=== PATIENT | male | born 1965 | race Two or more races ===

== ENCOUNTER 2017-03-28 03:27 | Emergency (ER) | payer BC ==
[~2017-03-28] VITALS: Ht 182.9 cm; Wt 104.3 kg
[2017-03-28] MEDS ORDERED: CLOTRIMAZOLE-BETAMETHASONE CRM (03:38)
[2017-03-28] MEDS ORDERED: HYDROCODON-ACETAMINOPHN 10-325 (03:38)
[2017-03-28] MEDS ORDERED: COLCRYS 0.6 MG TABLET (03:38)
--- NOTE | 2017-03-28 04:12 | NUR ---
Patient discharged to home in stable conditon. Written and verbal after care instructions given. Patient verbalizes understanding of instructions.
== END 2017-03-28 04:13 | disposition home or self-care (01) ==
LOC: ER 03:33
DX: Z00.8 Encounter for other general examination (principal); F17.200 Nicotine dependence, unspecified, uncomplicated
CPT/HCPCS: 74000; 99283; 99406; A4663

== ENCOUNTER 2022-09-21 14:24 | Inpatient (IN) | payer OTHER ==
[~2022-09-21] VITALS: Ht 182.9 cm; Wt 113.4 kg
[~2022-09-21 14:24] MED LIST: CLOTRIMAZOLE-BETAMETHASONE CRM; COLCRYS 0.6 MG TABLET; HYDROCODON-ACETAMINOPHN 10-325
[2022-09-21 21:15] VITALS: BP 118/80
--- NOTE | 2022-09-21 21:15 | NUR ---
patient received via gurgio from [facility] for ARU -REHAB ADMISSION DX:RIGHT KNEE REPLACEMENT - TOTAL KNEE ARTHROPLASTY -C/O OSTEOARTHRITIS. PATIENT AAOX4.NO RESPIRATORY DISTRESS NOTED ON ROOM AIR . RIGHT KNEE WITH POST OP DRESSING -WRAPPED WITH KAYLIE BANDAGE. URINAL PLACED WITHIN REACH.ORIENTED WITH ROOM AND EQUIPMENT . CALL LIGHT PLACED WITH IN REACH AND ADVISED PATIENT TO CALL FOR ASSISTANCE AND HELP .
--- NOTE | 2022-09-21 22:30 | NUR ---
CALLED [facility] AND BRADY MARLEY INFORMED PATIENT IS HERE AND NEED ADMISSION ORDERS MEDICATION NEEDS TO BE RECONCILED .
[2022-09-21] MEDS ORDERED: DICL25TA10 PO (22:42)
[2022-09-21] MEDS ORDERED: VALS80TA2 PO (22:42)
[2022-09-21] MEDS ORDERED: ASPI81TA31 PO (22:42)
[2022-09-21] MEDS ORDERED: PANT40TA49 PO (22:42)
[2022-09-21] MEDS ORDERED: OXYC10TA49 PO (22:42)
[2022-09-22] MEDS ORDERED: HYDROCODONE/APAP 5-325MG TABLET PO PRN (00:30)
[2022-09-22] MEDS ORDERED: ACETAMINOPHEN 325 MG TABLET PO PRN (00:30)
[2022-09-22] MEDS ORDERED: MAGNESIUM HYDROXIDE 30 ML LIQUID UDC PO PRN (00:30)
[2022-09-22] MEDS ORDERED: ONDANSETRON 4 MG/2 ML VIAL IV PRN (00:30)
[2022-09-22] MEDS ORDERED: REMEDY ESSENTIAL ZINC PASTE 113 GM TP PRN (00:30)
[2022-09-22] MEDS ORDERED: HYDROCODONE/APAP 10-325 MG TABLET PO PRN ×2 (01:30→07:00)
[2022-09-22] MEDS ORDERED: DICLOFENAC 25 MG TABLET.DR PO PRN ×2 (01:30→09:15)
[2022-09-22 04:00] VITALS: BP 135/82
[2022-09-22] MEDS: OXYCODONE HCL 5 MG TABLET PO PRN ×2 (04:24→08:21)
--- NOTE | 2022-09-22 04:28 | NUR ---
patient called verbalizing pain to his right knee 10/10, patient requesting the oxycodone . given pain medication took pill with applejuice patient also requested for something to eat given ham sandwich .
[2022-09-22] MEDS: PANTOPRAZOLE SODIUM 40 MG TABLET.DR PO SCH (06:27)
[2022-09-22] MEDS ORDERED: PANTOPRAZOLE SODIUM 40 MG TABLET.DR PO SCH (07:00)
[2022-09-22 07:47] VITALS: BP 126/84
[2022-09-22] MEDS: ASPIRIN 81 MG TAB.CHEW PO SCH ×2 (08:20→20:33)
[2022-09-22] MEDS: VALSARTAN 80 MG TABLET PO SCH (08:20)
--- NOTE | 2022-09-22 09:28 | NUR ---
PATIENT VERBALIZED HAVING INTENSE PAIN 10/10 ON KNEE. RN NOTIFIES MD. MD ACKNOWLEDGED. RN PROVIDED ICE FOR COMFORT. PLAN OF CARE CONTINUES.
[2022-09-22] MEDS ORDERED: KETOROLAC TROMETHAMINE 30 MG INJ IM ONE (10:00)
[2022-09-22] MEDS: MORPHINE SULFATE SR 15 MG TABLET.SA PO SCH ×2 (10:07→20:33)
--- NOTE | 2022-09-22 10:15 | NUR ---
ORDERS RECEIVED FROM MD RELATED TO PAIN MEDICATIONS. ORDERS CARRIED OUT. NO ACUTE DISTRESS NOTED. PLAN OF CARE CONTINUES.
[2022-09-22] MEDS: ENOXAPARIN SODIUM 40 MG/0.4 ML DISP.SYRIN SQ SCH (11:41)
[2022-09-22 16:16] VITALS: BP 109/77
--- NOTE | 2022-09-22 19:49 | NUR ---
RN RECEIVED REPORT FROM GENE MURPHY, NOC SHIFT. PATIENT IS ALERT AND ORIENTED X4 AND VITAL SIGNS STABLE. PATIENT COMPLAINED OF PAIN. RN GAVE PAIN MEDICATIONS ORDERED. PATIENT EXPRESSED RELIEF. PATIENT TOLERATES PO MEDICATIONS AND DIET WELL. PATIENT PARTICIPATES WITH PHYSICAL AND OCCUPATIONAL THERAPY SCHEDULED, HOWEVER PAIN WORSEN. RN NOTIFIED MD. ORDERS CARRIED OUT. PATIENT'S BROTHER VISITED. NO ACUTE DISTRESS NOTED. ALL NEEDS MET AT THIS TIME. CALL LIGHT WITHIN REACH. RN ENDORSED CONTINUATION OF CARE TO GENE MURPHY, FOR THE CONTINUATION OF CARE.
--- NOTE | 2022-09-22 20:00 | NUR ---
rounds made patient in bed resting .no s/s of respiratory distress .denies pain at this time . right knee with елена wrapped CDI .ICE PACKS placed on top of the knee .
[2022-09-22 20:19] VITALS: BP 116/73
[2022-09-22] MEDS: DOCUSATE SODIUM 100 MG CAPSULE PO SCH (20:33)
--- NOTE | 2022-09-22 20:33 | NUR ---
due po medication given and patient tolerated with water . hob up and aspiration precaution observed patient able to swallow meds with no difficulty .
[2022-09-23] MEDS: OXYCODONE HCL 5 MG TABLET PO PRN ×2 (02:15→14:55)
--- NOTE | 2022-09-23 02:15 | NUR ---
patient called c/o pain to his right knee 03/05.given prn oxycodone 10 mg tablet took medication with cranberry juice . .
[2022-09-23 04:00] VITALS: BP 125/74
--- NOTE | 2022-09-23 04:30 | NUR ---
sleeping in bed no s/s of pain ,breathing even and unlabored no respiratory distress .
[2022-09-23] MEDS: PANTOPRAZOLE SODIUM 40 MG TABLET.DR PO SCH (06:08)
[2022-09-23 06:24] LABS: HEMATOCRIT 38.7 % (36.7-47.1); MEAN CORPUSCULAR HEMOGLOBIN 29.1 uug (23.8-33.4); MEAN CORPUSCULAR VOLUME 86.5 fL (73.0-96.2); PLATELET COUNT (AUTO) 247 K/uL (152-348)
[2022-09-23 06:49] LABS: CREATININE 1.3 mg/dL (0.6-1.3); MAGNESIUM 2.2 mg/dL (1.8-2.4); POTASSIUM 3.9 mmol/L (3.5-5.1)
[2022-09-23 08:00] VITALS: BP 95/57
[2022-09-23] MEDS: ASPIRIN 81 MG TAB.CHEW PO SCH ×2 (08:31→22:36)
[2022-09-23] MEDS: VALSARTAN 80 MG TABLET PO SCH (08:31)
[2022-09-23] MEDS: MORPHINE SULFATE SR 15 MG TABLET.SA PO SCH ×2 (08:31→23:13)
[2022-09-23] MEDS: ENOXAPARIN SODIUM 40 MG/0.4 ML DISP.SYRIN SQ SCH (08:32)
[2022-09-23 12:00] VITALS: BP 107/60
[2022-09-23 16:00] VITALS: BP 117/69
[2022-09-23 20:00] VITALS: BP 103/70
--- NOTE | 2022-09-23 20:00 | NUR ---
recd pt in bed, no acute distress noted,no complaints of pain presented.vital signsw/i normal limits.i
[2022-09-23] MEDS: DOCUSATE SODIUM 100 MG CAPSULE PO SCH (22:37)
--- NOTE | 2022-09-23 23:00 | NUR ---
due meds given,voided freely well, repositioned in bed. slept on and off.
[2022-09-24] MEDS: PANTOPRAZOLE SODIUM 40 MG TABLET.DR PO SCH (06:35)
--- NOTE | 2022-09-24 07:10 | NUR ---
Pt resting comfortable right le kept elevated on pillow no distres report. Pt took his medication at 0700 no further c/o retort forker.Endorse care to incoming RN
[2022-09-24 08:00] VITALS: BP 114/69
[2022-09-24] MEDS: MORPHINE SULFATE SR 15 MG TABLET.SA PO SCH ×2 (08:43→21:02)
[2022-09-24] MEDS: ASPIRIN 81 MG TAB.CHEW PO SCH ×2 (08:44→21:02)
[2022-09-24] MEDS: VALSARTAN 80 MG TABLET PO SCH (08:44)
[2022-09-24] MEDS: ENOXAPARIN SODIUM 40 MG/0.4 ML DISP.SYRIN SQ SCH (08:45)
--- NOTE | 2022-09-24 10:26 | NUR ---
0730-REC'D PATIENT IN BED, ASLEEP, WAKES UP ON VERBAL COMMANDS, NO RESPIRATORY DISTRESS NOTED; PATIENT A/OX4, DENIES PAIN AT THIS TIME. RT KNEE SURGICAL SITE WITH CLEAN DD IN PLACE, NO S/S OF BLEEDING NOTED. SAFETY MEASURES IN PLACE; ENCOURAGED PATIENT TO USE CALL LIGHT FOR HELP EVERY TIME NEEDED. 0900-ALL SCHEDULED MEDICATIONS ADMINISTERED WITH NO ASE NOTED; ORAL FLUIDS TAKEN WELL. PATIENT ON BLOOD THINNER WITH NO S/S OF BLEEDING OBSERVED.
[2022-09-24] MEDS: OXYCODONE HCL 5 MG TABLET PO PRN (11:25)
[2022-09-24] MEDS ORDERED: LACTULOSE 20 G/30 ML LIQUID UDC PO PRN (13:00)
--- NOTE | 2022-09-24 14:40 | NUR ---
INDIVIDUALIZED PLAN OF CARE
[2022-09-24 15:51] VITALS: BP 111/66
[2022-09-24] MEDS: PROTEIN SUPPLEMENT (PROSTAT) 30 ML LIQUID PO SCH (17:08)
--- NOTE | 2022-09-24 18:32 | NUR ---
1800-Lactulose given earlier for constipation; patient was assisted to the restroom and had a large BM at this time. Assisted with perineal care and back to his bed safely. Patient denies pain or discomfort. Assisted as needed through out the shift. All needs anticipated and met.
[2022-09-24 20:00] VITALS: BP 115/43
[2022-09-24] MEDS: DOCUSATE SODIUM 100 MG CAPSULE PO SCH (21:02)
[2022-09-25 04:00] VITALS: BP 112/71
[2022-09-25] MEDS: PANTOPRAZOLE SODIUM 40 MG TABLET.DR PO SCH (06:21)
[2022-09-25 07:17] LABS: THYROID STIMULATING HORMONE 0.99 mIU/mL (0.358-3.740)
[2022-09-25 07:55] VITALS: BP 123/74
[2022-09-25] MEDS: MORPHINE SULFATE SR 15 MG TABLET.SA PO SCH ×2 (08:16→20:14)
[2022-09-25] MEDS: VALSARTAN 80 MG TABLET PO SCH (08:16)
[2022-09-25] MEDS: ENOXAPARIN SODIUM 40 MG/0.4 ML DISP.SYRIN SQ SCH (08:16)
[2022-09-25] MEDS: ASPIRIN 81 MG TAB.CHEW PO SCH ×2 (08:16→20:14)
[2022-09-25 08:42] LABS: CREATININE 1.1 mg/dL (0.6-1.3); MAGNESIUM 2.3 mg/dL (1.8-2.4); PHOSPHOROUS 4.1 mg/dL (2.5-4.9); POTASSIUM 4.1 mmol/L (3.5-5.1)
[2022-09-25] MEDS: PROTEIN SUPPLEMENT (PROSTAT) 30 ML LIQUID PO SCH ×2 (08:54→17:08)
--- NOTE | 2022-09-25 08:56 | NUR ---
0730-Rec'd patient in bed, no apparent respiratory distress noted; on R/A and kaveh. well. Skin pink/W/D to the touch, afebrile, patient denies pain, A/Ox4; verbalizes needs and follows directions. RT knee with clean DD in place. Safety measures in place, call light at reach and encouraged to use it every time help is needed.
--- NOTE | 2022-09-25 08:59 | NUR ---
0900-Scheduled medications administered as ordered, no ASE noted; oral fluids taken well, patient denies GI distress/discomfort. Continues eating his breakfast. Assist provided as needed.
[2022-09-25] MEDS: OXYCODONE HCL 5 MG TABLET PO PRN (11:50)
--- NOTE | 2022-09-25 14:25 | NUR ---
1:33PM-SPOKE TO SANJANA AT Dr SOL'S OFFICE REGARDING PATIENT'S TREATMENT TO HIS RIGHT KNEE, S/P RT KNEE REPLACEMENT ON 09/19/22. PER SANJANA "LEAVE IT ALONE TILL SEEN BY MD SOL ON September" PATIENT WILL BE SEEN BY Dr. SOL AT 1:15PM., PATIENT IS AWARE AND COMPLIANT WITH HIS ORTHO'S INSTRUCTIONS.
[2022-09-25 16:42] VITALS: BP 110/63
--- NOTE | 2022-09-25 18:53 | NUR ---
No changes in condition during shift. No unusual happenings. Pain needs addressed and pain managed as ordered by MD. Assisted with ADLs and at all times. All needs anticipated and met.
[2022-09-25 20:00] VITALS: BP 125/72
[2022-09-25] MEDS: DOCUSATE SODIUM 100 MG CAPSULE PO SCH (20:14)
[2022-09-26 05:54] VITALS: BP 115/56
[2022-09-26] MEDS: PANTOPRAZOLE SODIUM 40 MG TABLET.DR PO SCH (06:08)
[2022-09-26 08:00] VITALS: BP 124/64
[2022-09-26] MEDS: VALSARTAN 80 MG TABLET PO SCH (08:54)
[2022-09-26] MEDS: ENOXAPARIN SODIUM 40 MG/0.4 ML DISP.SYRIN SQ SCH (08:54)
[2022-09-26] MEDS: MORPHINE SULFATE SR 15 MG TABLET.SA PO SCH (08:54)
[2022-09-26] MEDS: ASPIRIN 81 MG TAB.CHEW PO SCH ×2 (08:54→20:52)
[2022-09-26] MEDS: PROTEIN SUPPLEMENT (PROSTAT) 30 ML LIQUID PO SCH ×2 (08:55→17:03)
--- NOTE | 2022-09-26 14:25 | NUR ---
INTERDISCIPLINARY TEAM CONFERENCE
[2022-09-26 16:06] VITALS: BP 106/68
--- NOTE | 2022-09-26 18:41 | NUR ---
Patient A/Ox4, verbalizes needs and follows directions. Pain well controlled/managed. Patient compliant with his treatment and cooperative with care and nursing staff. Requires of one person's maximum assist with transfers w/c to bed/bed-w/c. Patient is able to communicate his needs promptly and timely. Eating and drinking well. Supervision and assist provided during meal times. Assisted to the restroom as requested/needed. Assisted with his care/personal hygiene. RT knee surgical site dressing intact, no bleeding or drainage noted. Medication administered through out the shift as scheduled/ordered by MD. All needs anticipated and met. Endorsed to incoming relieving RN.
[2022-09-26 20:00] VITALS: BP 114/71
[2022-09-26] MEDS: DOCUSATE SODIUM 100 MG CAPSULE PO SCH (20:52)
[2022-09-26] MEDS: OXYCODONE HCL 5 MG TABLET PO SCH (22:25)
[2022-09-27] MEDS: PANTOPRAZOLE SODIUM 40 MG TABLET.DR PO SCH (06:17)
[2022-09-27] MEDS: OXYCODONE HCL 5 MG TABLET PO SCH ×3 (06:18→18:43)
--- NOTE | 2022-09-27 06:36 | NUR ---
Medicated twice for pain throughout the night with relief. No further complaint presented. All need attended and met. Continue care as planned.
[2022-09-27 08:00] VITALS: BP 127/75
--- NOTE | 2022-09-27 08:00 | NUR ---
Received shift report on pt by night time nanny. Pt is A & O x 4. Pt is resting comfortably in bed. Call light within reach. No complaints of pain, distress, and no SOB.
[2022-09-27] MEDS: VALSARTAN 80 MG TABLET PO SCH (08:59)
[2022-09-27] MEDS: ASPIRIN 81 MG TAB.CHEW PO SCH ×2 (08:59→22:33)
[2022-09-27] MEDS: PROTEIN SUPPLEMENT (PROSTAT) 30 ML LIQUID PO SCH ×2 (09:00→17:43)
[2022-09-27] MEDS: ENOXAPARIN SODIUM 40 MG/0.4 ML DISP.SYRIN SQ SCH (09:01)
[2022-09-27 15:45] VITALS: BP 132/78
[2022-09-27 20:43] VITALS: BP 104/68
[2022-09-27] MEDS: DOCUSATE SODIUM 100 MG CAPSULE PO SCH (21:00)
[2022-09-27] MEDS ORDERED: OXYCODONE HCL 5 MG TABLET ONE (23:56)
[2022-09-28] MEDS: ZOLPIDEM 5 MG TABLET PO PRN (00:04)
[2022-09-28 04:45] VITALS: BP 119/68
[2022-09-28] MEDS: PANTOPRAZOLE SODIUM 40 MG TABLET.DR PO SCH (07:13)
--- NOTE | 2022-09-28 07:30 | NUR ---
UNEVENTFUL NITE. NO ACUTE DISTRESS NOTED.DUE MEDS GIVEN , VOIDED FREELY WELL ,REFUSED STOOL SOFTENER, TOOK RAISIN BRAN FOR FIBER.ENDOSED IN APPARENTLY FAIR CONDITION.
[2022-09-28 08:04] VITALS: BP 121/64
[2022-09-28] MEDS: ASPIRIN 81 MG TAB.CHEW PO SCH ×2 (08:43→20:35)
[2022-09-28] MEDS: PROTEIN SUPPLEMENT (PROSTAT) 30 ML LIQUID PO SCH ×2 (08:43→18:22)
[2022-09-28] MEDS: VALSARTAN 80 MG TABLET PO SCH (08:43)
[2022-09-28] MEDS: OXYCODONE HCL 5 MG TABLET PO SCH ×4 (08:43→20:36)
[2022-09-28] MEDS: ENOXAPARIN SODIUM 40 MG/0.4 ML DISP.SYRIN SQ SCH (08:44)
[2022-09-28 15:34] VITALS: BP 115/72
--- NOTE | 2022-09-28 19:52 | NUR ---
RECEIVED REPORT FROM [facility] SHIFT RN. PATIENT IS ALERT AND ORIENTED X4. VITAL SIGNS STABLE. PATIENT TOLERATES PO MEDICATIONS AND DIET WELL. PATIENT HAD COMPLIANT OF PAIN. RN GAVE PAIN MEDICATIONS ORDERED. PATIENT EXPRESSED RELIEF. PATIENT PARTICIPATES WITH PHYSICAL AND OCCUPATIONAL THERAPY. DRESSING CHANGED. PHOTO TAKEN. ALL NEEDS MET AT THIS TIME. PLAN OF CARE CONTINUES. CALL LIGHT WITHIN REACH. FALL PRECAUTIONS IN PLACE. RN ENDORSED CONTINUATION OF CARE TO [facility] SHIFT RN FOR THE CONTINUATION OF CARE.
[2022-09-28 20:35] VITALS: BP 124/75
[2022-09-28] MEDS: DOCUSATE SODIUM 100 MG CAPSULE PO SCH (20:35)
[2022-09-29] MEDS: OXYCODONE HCL 5 MG TABLET PO SCH ×4 (02:57→20:34)
--- NOTE | 2022-09-29 04:25 | NUR ---
AAOx4 All needs attended. VSS S/P right total knee replacement. Right knee dressing clean dry and intact. Continent of bowel and bladder. Pain meds given as scheduled. Tolerated well. Will monitor patient. No acute distress noted.
[2022-09-29] MEDS: PANTOPRAZOLE SODIUM 40 MG TABLET.DR PO SCH (06:06)
[2022-09-29 08:00] VITALS: BP 125/74
[2022-09-29] MEDS: ENOXAPARIN SODIUM 40 MG/0.4 ML DISP.SYRIN SQ SCH (08:25)
[2022-09-29] MEDS: VALSARTAN 80 MG TABLET PO SCH (08:26)
[2022-09-29] MEDS: ASPIRIN 81 MG TAB.CHEW PO SCH ×2 (08:26→20:34)
[2022-09-29] MEDS: PROTEIN SUPPLEMENT (PROSTAT) 30 ML LIQUID PO SCH ×2 (08:27→17:26)
[2022-09-29 16:01] VITALS: BP 125/74
--- NOTE | 2022-09-29 16:22 | NUR ---
RN CALLED PHARMACY REGARDING OXYCODONE 5MG/1 TAB ONCE DOSE INTENDED FOR THE 09/27/2022. PER PHARMACY, JUST TO DO NON-ADMIN. PLAN OF CARE CONTINUES.
--- NOTE | 2022-09-29 19:11 | NUR ---
RECEIVED REPORT FROM [facility] SHIFT RN. PATIENT IS ALERT AND ORIENTED X4. VITAL SIGNS STABLE. PATIENT TOLERATES PO MEDICATIONS AND DIET WELL. PATIENT HAD COMPLIANT OF PAIN. RN GAVE PAIN MEDICATIONS ORDERED. PATIENT EXPRESSED RELIEF. PATIENT PARTICIPATES WITH PHYSICAL AND OCCUPATIONAL THERAPY. PER PHYSICAL THERAPY, PATIENT ENCOURAGED TO TRANSFER TO CHAIR FOR MEALS. PATIENT AGREEABLE AND RN FOLLOWED DIRECTED. ALL NEEDS MET AT THIS TIME. CALL LIGHT WITHIN REACH. FALL PRECAUTIONS IN PLACE. RN ENDORSED CONTINUATION OF CARE TO [facility] SHIFT RN FOR THE CONTINUATION OF CARE.
[2022-09-29 20:21] VITALS: BP 123/71
[2022-09-29] MEDS: DOCUSATE SODIUM 100 MG CAPSULE PO SCH (20:36)
[2022-09-29] MEDS: ZOLPIDEM 5 MG TABLET PO PRN (22:23)
[2022-09-30] MEDS: OXYCODONE HCL 5 MG TABLET PO SCH ×4 (02:31→20:41)
--- NOTE | 2022-09-30 04:50 | NUR ---
AAOx4 All needs attended. Pain meds given as scheduled. Tolerated well. Voiding freely. Kept comfortable. VSS. RLE dressing intact. Will monitor patient. No acute distress noted.
[2022-09-30 06:10] VITALS: BP 127/72
[2022-09-30] MEDS: PANTOPRAZOLE SODIUM 40 MG TABLET.DR PO SCH (06:18)
[2022-09-30 08:00] VITALS: BP 122/69
[2022-09-30] MEDS: ASPIRIN 81 MG TAB.CHEW PO SCH ×2 (09:06→20:41)
[2022-09-30] MEDS: VALSARTAN 80 MG TABLET PO SCH (09:07)
[2022-09-30] MEDS: PROTEIN SUPPLEMENT (PROSTAT) 30 ML LIQUID PO SCH ×2 (09:10→17:47)
[2022-09-30] MEDS: ENOXAPARIN SODIUM 40 MG/0.4 ML DISP.SYRIN SQ SCH (09:10)
[2022-09-30 09:54] LABS: *BILIRUBIN,URIN NEGATIVE (NEGATIVE); *BLOOD, URINE NEGATIVE (NEGATIVE); *CLARITY,URINE CLEAR (CLEAR); *COLOR,URINE YELLOW (YELLOW); *KETONES,URINE NEGATIVE (NEGATIVE); *UROBILINOGEN,URINE >=8.0 E.U./dl (NORMAL); LEUKOCYTE ESTERASE ,URINE NEGATIVE (NEGATIVE); NITRITE, URINE NEGATIVE (NEGATIVE); PH,URINE 5.5 (5.0-8.0); UGLUCOSE NEGATIVE (NEGATIVE)
[2022-09-30 16:00] VITALS: BP 114/77
[2022-09-30 20:28] VITALS: BP 116/68
[2022-09-30] MEDS: DOCUSATE SODIUM 100 MG CAPSULE PO SCH (20:41)
[2022-09-30] MEDS: ZOLPIDEM 5 MG TABLET PO PRN (23:17)
[2022-10-01] MEDS: OXYCODONE HCL 5 MG TABLET PO SCH ×4 (03:07→21:51)
[2022-10-01] MEDS: PANTOPRAZOLE SODIUM 40 MG TABLET.DR PO SCH (06:24)
[2022-10-01 07:33] VITALS: BP 123/74
[2022-10-01] MEDS: ASPIRIN 81 MG TAB.CHEW PO SCH ×2 (08:50→21:48)
[2022-10-01] MEDS: VALSARTAN 80 MG TABLET PO SCH (08:50)
[2022-10-01] MEDS: PROTEIN SUPPLEMENT (PROSTAT) 30 ML LIQUID PO SCH ×2 (08:51→17:46)
[2022-10-01] MEDS: ENOXAPARIN SODIUM 40 MG/0.4 ML DISP.SYRIN SQ SCH (08:52)
[2022-10-01 16:00] VITALS: BP 129/63
--- NOTE | 2022-10-01 19:31 | NUR ---
RECEIVED REPORT FROM [facility] SHIFT RN. PATIENT IS ALERT AND ORIENTED X4. VITAL SIGNS STABLE. PATIENT TOLERATES PO MEDICATIONS AND DIET WELL. PATIENT HAD COMPLIANT OF PAIN. RN GAVE PAIN MEDICATIONS ORDERED. PATIENT EXPRESSED RELIEF. PATIENT PARTICIPATES WITH PHYSICAL AND OCCUPATIONAL THERAPY. PER PHYSICAL THERAPY, PATIENT ENCOURAGED TO TRANSFER TO CHAIR FOR MEALS. PATIENT REQUESTS CD OF X-RAY. PROVIDED TO PATIENT PER REQUEST. ALL NEEDS MET AT THIS TIME. CALL LIGHT WITHIN REACH. FALL PRECAUTIONS IN PLACE. RN ENDORSED CONTINUATION OF CARE TO NOC SHIFT RN.
[2022-10-01 20:00] VITALS: BP 133/79
[2022-10-01] MEDS: DOCUSATE SODIUM 100 MG CAPSULE PO SCH (21:48)
[2022-10-01] MEDS: ZOLPIDEM 5 MG TABLET PO PRN (23:32)
[2022-10-02] MEDS: OXYCODONE HCL 5 MG TABLET PO SCH ×3 (03:00→14:41)
--- NOTE | 2022-10-02 03:20 | NUR ---
Sound asleep still. Pain medication due at 0300 not given. Will monitor.
[2022-10-02 04:55] VITALS: BP 128/73
[2022-10-02] MEDS: PANTOPRAZOLE SODIUM 40 MG TABLET.DR PO SCH (06:37)
[2022-10-02 06:48] LABS: MEAN CORPUSCULAR HEMOGLOBIN 28.9 uug (23.8-33.4); PLATELET COUNT (AUTO) 364 K/uL (152-348)
[2022-10-02 07:31] LABS: CREATININE 0.9 mg/dL (0.6-1.3); MAGNESIUM 1.7 mg/dL (1.8-2.4); PHOSPHOROUS 4.1 mg/dL (2.5-4.9); POTASSIUM 4.3 mmol/L (3.5-5.1)
[2022-10-02 07:42] VITALS: BP 125/71
[2022-10-02] MEDS: ASPIRIN 81 MG TAB.CHEW PO SCH (08:40)
[2022-10-02] MEDS: VALSARTAN 80 MG TABLET PO SCH (08:41)
[2022-10-02] MEDS: ENOXAPARIN SODIUM 40 MG/0.4 ML DISP.SYRIN SQ SCH (08:43)
[2022-10-02] MEDS: PROTEIN SUPPLEMENT (PROSTAT) 30 ML LIQUID PO SCH ×2 (08:49→17:59)
[2022-10-02] MEDS ORDERED: MAGNESIUM OXIDE 400 MG TABLET PO ONE (12:00)
[2022-10-02 16:00] VITALS: BP 134/76
--- NOTE | 2022-10-02 18:50 | NUR ---
RECEIVED REPORT FROM NOC SHIFT RN. PATIENT IS ALERT AND ORIENTED X4. VITAL SIGNS STABLE. PATIENT TOLERATES PO MEDICATIONS AND DIET WELL. PATIENT HAD COMPLIANT OF PAIN. RN GAVE PAIN MEDICATIONS ORDERED. PATIENT EXPRESSED RELIEF. PATIENT PARTICIPATES WITH PHYSICAL AND OCCUPATIONAL THERAPY. PATIENT WENT TO SURGEON VISIT VIA TRANSPORTATION FROM INSURANCE AT 1230PM. PATIENT RETURNS TO FLOOR AT 1435PM. RN GAVE PAIN MEDICATION ORDERED. PATIENT MADE AWARE OF DISCHARGE BY [facility]. PATIENT AGREEABLE TO DISCHARGE. DISCHARGE EDUCATION PROVIDED. PATIENT VERBALIZED UNDERSTANDING. PATIENT SIGNED DISCHARGE PAPERWORK. PATIENT BELONGINGS ACCOUNTED FOR. RN NOTED PATIENT ONLY HAD $100 LEFT. PATIENT NOTIFIES RN THAT HE SPENT THE [employer] ON NIGHT TIME PIZZAS AND ICE CREAMS. PATIENT AGREEABLE TO ONLY HAVING $100. ALL PATIENT BELONGINGS ACCOUNTED FOR. PATIENT SIGNS PATIENT BELONGINGS LIST. PATIENT DISCHARGE TO [facility], IN STABLE CONDITION.
== END 2022-10-02 18:50 | disposition home health service (06) | DRG 560 ==
PROVIDERS: ADMIT Physical Medicine & Rehabilitation Pain Medicine; ATTEND Physical Medicine & Rehabilitation Pain Medicine
DX: Z47.1 Aftercare following joint replacement surgery (principal); E87.1 Hypo-osmolality and hyponatremia; N17.9 Acute kidney failure, unspecified; Z96.651 Presence of right artificial knee joint; M17.11 Unilateral primary osteoarthritis, right knee; I10 Essential (primary) hypertension; E86.1 Hypovolemia; D72.829 Elevated white blood cell count, unspecified; E83.39 Other disorders of phosphorus metabolism; Z68.33 Body mass index [BMI] 33.0-33.9, adult; Z87.891 Personal history of nicotine dependence; E66.9 Obesity, unspecified; R73.03 Prediabetes
CPT/HCPCS: 36415; 83735; 84100; 84443; 84550; 85025; 97535-GO-CO; J1650; J1885